=== PATIENT | male | born 1975 | race African-American/Black ===

== ENCOUNTER 2021-07-02 08:07 | Observation (INO) | payer SELFPAY ==
[2021-07-02 10:32] LABS: ALBUMIN 3.3 g/dl (3.4-5.0); BILIRUBIN,TOTAL 0.7 mg/dl (0.2-1); CREATININE 0.7 mg/dl (0.55-1.3)
[2021-07-02 10:34] LABS: PROTHROMBIN TIME (PATIENT) 15.3 SEC (9.7-13.0)
[2021-07-02 10:35] LABS: ACTIVATED PTT 28.3 SECONDS (25.2-36.5); INR 1.33 (0.83-1.09)
[2021-07-02 11:23] LABS: BASO % 0.8 % (0-2.0); EOS % 3.5 % (0-4.5); HEMATOCRIT 35.7 % (35.4-49); HEMOGLOBIN 12.1 GM/dL (11.7-16.9); LYMPH % 12.1 % (8-40); MCH 32.6 pg (25.7-33.7); MEAN PLT VOLUME 7.4 fl (7.5-11.1); MONO % 5.7 % (3.8-10.2); NEUT % 77.9 % (42.8-82.8); PLATELET COUNT 384 10^3/uL (134-434); RBC 3.72 M/mm3 (4.00-5.60); RDW 13.1 % (11.9-15.9); WHITE BLOOD COUNT 12.4 K/mm3 (4.0-10.0)
[2021-07-02] MEDS: ENOXAPARIN NA (PORCINE) 120 MG/0.8 ML DISP.SYRIN SQ SCH (13:13)
[2021-07-02 16:25] VITALS: BMI 50.1
[2021-07-02] MEDS: APIXABAN 5 MG TABLET PO SCH (22:56)
[2021-07-03 08:18] LABS: ALBUMIN 3.2 g/dl (3.4-5.0); BILIRUBIN,TOTAL 0.7 mg/dl (0.2-1); CREATININE 0.7 mg/dl (0.55-1.3); TOT PROT 6.7 g/dl (6.4-8.2)
[2021-07-03] MEDS ORDERED: ACETAMINOPHEN 325 MG TABLET (FP) PO PRN (09:35)
[2021-07-03 10:56] LABS: BASO % 0.7 % (0-2.0); HEMATOCRIT 37.8 % (35.4-49); HEMOGLOBIN 12.3 GM/dL (11.7-16.9); LYMPH % 16.8 % (8-40); MCH 31.6 pg (25.7-33.7); MCHC 32.6 g/dl (32.0-35.9); MEAN CELL VOLUME 96.8 fl (80-96); MEAN PLT VOLUME 7.5 fl (7.5-11.1); MONO % 8.3 % (3.8-10.2); NEUT % 70.2 % (42.8-82.8); PLATELET COUNT 411 10^3/uL (134-434); RBC 3.91 M/mm3 (4.00-5.60); RDW 12.7 % (11.9-15.9); WHITE BLOOD COUNT 10.6 K/mm3 (4.0-10.0)
[2021-07-03] MEDS: APIXABAN 5 MG TABLET PO SCH ×2 (12:26→21:29)
[2021-07-03] MEDS: ENOXAPARIN NA (PORCINE) 120 MG/0.8 ML DISP.SYRIN SQ SCH (12:27)
[2021-07-04 09:20] VITALS: BP 119/59; PULSE 55; TEMP 98.8
[2021-07-04] MEDS: APIXABAN 5 MG TABLET PO SCH (10:04)
== END 2021-07-04 13:45 | disposition home or self-care (01) ==
LOC: FER 08:07 → FM/S 12:31 → INTOOBSV 12:31
PROVIDERS: ADMIT Internal Medicine; ATTEND Nurse Practitioner Acute Care
CPT/HCPCS: 36415; 71045-TC-FY; 80053; 81003; 81015; 83036; 83735; 85025; 85610; 85730; 86850; 86900; 86901; 87086; 93005; 93971-TC; 99285-25; C9803; G0378; U0003; U0005